=== PATIENT | female | born 1965 ===

== ENCOUNTER 2017-10-12 15:40 | Emergency (ER) | payer SELFPAY ==
[2017-10-12 16:52] LABS: Basophils # (Auto) 0.1 K/mm3 (0.0-0.1); Basophils % (Auto) 1.5 % (0.0-1.8); Eosinophils # (Auto) 0.3 K/mm3 (0.0-0.4); Eosinophils % (Auto) 3.8 % (0.0-4.3); Hematocrit 41.1 % (30.3-42.9); Hemoglobin 13.4 gm/dl (10.1-14.3); Lymphocytes # (Auto) 3.6 K/mm3 (1.2-5.4); Mean Corpuscular HGB Conc 33 % (30-34); Mean Corpuscular Hemoglobin 28 pg (28-32); Mean Corpuscular Volume 86 fl (79-97); Monocytes # (Auto) 0.5 K/mm3 (0.0-0.8); Monocytes % (Auto) 6.7 % (0.0-7.3); Platelet Count 188 K/mm3 (140-440); Red Blood Count 4.76 M/mm3 (3.65-5.03); Red Cell Distribution Width 14.5 % (13.2-15.2)
[2017-10-12 17:18] LABS: Alanine Aminotransferase 22 units/L (7-56); Albumin 4.4 g/dL (3.9-5); BUN/Creatinine Ratio 15; Blood Urea Nitrogen 9 mg/dL (7-17); Calcium 9.3 mg/dL (8.4-10.2); Hemolysis Index 39; Lipase 44 units/L (13-60)
[2017-10-12 18:25] LABS: Bacteria,Urine 1+ /HPF (Negative); Bilirubin,Urine NEG (Negative); Blood,Urine NEG (Negative); Color,Urine Yellow (Yellow); Mucus,Urine FEW /HPF; Protein,Urine <15 mg/dL mg/dL (Negative); Urobilinogen,Urine < 2.0 mg/dL (<2.0)
[2017-10-12 18:28] LABS: Amphetamine Screen,Urine PRESUMPTIVE NEGATIVE; Benzodiazepines Screen,Urine PRESUMPTIVE NEGATIVE; Cannabinoid Screen,Urine PRESUMPTIVE NEGATIVE; Cocaine Screen,Urine PRESUMPTIVE NEGATIVE; Methadone Screen,Urine PRESUMPTIVE NEGATIVE; Opiate Screen,Urine PRESUMPTIVE NEGATIVE
--- NOTE | 2017-10-13 03:29 | Emergency Department Report ---
HPI - General Chief Complaint: Abdominal Pain Time Seen by Provider: 10/13/17 02:59 - HPI HPI: Room 8 The patient is a 52-year-old female presenting with chief complaint elbow pain. The patient states she believes she is being poisoned by her roommates because they do not like her. The patient states she purchased some shrimp and chicken from the supermarket and prepared it herself yesterday. The patient states the food had a different taste in approximately 20 minutes after consuming that she began to have abdominal pain and felt dizzy. Patient describes her abdominal pain is severe and diffuse. Patient states she's had nausea and vomiting but denies diarrhea. Patient is uncertain if she had a fever. Patient denies sick contacts. Patient denies recent antibiotic use. Location: Abdomen Duration: [See above] Quality: Pain Severity: Moderate Modifying factors: [see above] Context: [see above] Mode of transportation: Patient states she took public transportation ED Past Medical Hx - Past Medical History Previous Medical History?: No - Surgical History Past Surgical History?: No - Family History Family history: no significant - Social History Smoking Status: Never Smoker Substance Use Type: None (denies illicit drug use) - Medications Home Medications: Home Medications Medication Instructions Recorded Confirmed Last Taken Type Ciprofloxacin HCl [Ciprofloxacin 500 mg PO Q12H #14 tab 10/13/17 Unknown Rx TAB] Famotidine [Pepcid] 20 mg PO BID #20 tablet 10/13/17 Unknown Rx Promethazine [Phenergan TAB] 25 mg PO Q6HR PRN #20 tab 10/13/17 Unknown Rx Promethazine [Phenergan] 25 mg MS Q6HR PRN #5 supp.rect 10/13/17 Unknown Rx traMADol [Ultram] 50 mg PO Q6HR PRN #14 tablet 10/13/17 Unknown Rx ED Review of Systems ROS: Stated complaint: ABDOMINAL PAIN Other details as noted in HPI Constitutional: denies: fever Gastrointestinal: abdominal pain, nausea, vomiting. denies: diarrhea Neurological: other (lightheadedness) Physical Exam - Physical Exam Vital Signs: Vital Signs 10/12/17 10/13/17 10/13/17 16:26 02:25 02:30 Temperature 98.9 F Pulse Rate 79 Respiratory 18 Rate Blood Pressure 154/100 144/82 122/55 O2 Sat by Pulse 100 98 Oximetry 10/13/17 10/13/17 02:32 02:46 Temperature Pulse Rate Respiratory 18 Rate Blood Pressure 122/55 O2 Sat by Pulse 100 100 Oximetry Physical Exam: GENERAL: The patient is well-developed well-nourished female lying on stretcher not appearing to be in acute distress. [] HEENT: Normocephalic. Atraumatic. Extraocular motions are intact. Patient has moist mucous membranes. NECK: Supple. Trachea midline CHEST/LUNGS: Clear to auscultation. There is no respiratory distress noted. HEART/CARDIOVASCULAR: Regular. There is no tachycardia. There is no gallop rub or murmur. ABDOMEN: Abdomen is soft, nontender. Patient has normal bowel sounds. There is no abdominal distention. SKIN: There is no rash. There is no edema. There is no diaphoresis. NEURO: The patient is awake, alert, and oriented. The patient is cooperative. The patient has normal speech MUSCULOSKELETAL: There is no evidence of acute injury. ED Course Vital Signs 10/12/17 10/13/17 10/13/17 16:26 02:25 02:30 Temperature 98.9 F Pulse Rate 79 Respiratory 18 Rate Blood Pressure 154/100 144/82 122/55 O2 Sat by Pulse 100 98 Oximetry 10/13/17 10/13/17 02:32 02:46 Temperature Pulse Rate Respiratory 18 Rate Blood Pressure 122/55 O2 Sat by Pulse 100 100 Oximetry ED Medical Decision Making - Lab Data Result diagrams: 10/12/17 16:41 10/12/17 16:41 Laboratory Tests 10/12/17 10/12/17 10/12/17 16:41 16:41 17:16 WBC 7.3 RBC 4.76 Hgb 13.4 Hct 41.1 MCV 86 MCH 28 MCHC 33 RDW 14.5 Plt Count 188 Lymph % (Auto) 49.0 H Clinch % (Auto) 6.7 Eos % (Auto) 3.8 Baso % (Auto) 1.5 Lymph # 3.6 Clinch # 0.5 Eos # 0.3 Baso # 0.1 Seg Neutrophils % 39.0 L Seg Neutrophils # 2.9 Sodium 140 Potassium 3.9 Chloride 99.3 Carbon Dioxide 29 Anion Gap 16 BUN 9 Creatinine 0.6 L Estimated GFR > 60 BUN/Creatinine Ratio 15 Glucose 84 Calcium 9.3 Total Bilirubin 0.60 AST 31 ALT 22 Alkaline Phosphatase 100 Total Protein 8.1 Albumin 4.4 Albumin/Globulin Ratio 1.2 Lipase 44 Urine Color Yellow Urine Turbidity Clear Urine pH 5.0 Ur Specific [place] 1.017 Urine Protein <15 mg/dl Urine Glucose (UA) Neg Urine Ketones Neg Urine Blood Neg Urine Nitrite Neg Urine Bilirubin Neg Urine Urobilinogen < 2.0 Ur Leukocyte Esterase Tr Urine WBC (Auto) 2.0 Urine RBC (Auto) 3.0 U Epithel Cells (Auto) 1.0 Urine Bacteria (Auto) 1+ Urine Mucus Few Urine Opiates Screen Urine Methadone Screen Ur Barbiturates Screen Ur Phencyclidine Scrn Ur Amphetamines Screen U Benzodiazepines Scrn Urine Cocaine Screen U Marijuana (THC) Screen Drugs of Abuse Note 10/12/17 17:16 WBC RBC Hgb Hct MCV MCH MCHC RDW Plt Count Lymph % (Auto) Clinch % (Auto) Eos % (Auto) Baso % (Auto) Lymph # Clinch # Eos # Baso # Seg Neutrophils % Seg Neutrophils # Sodium Potassium Chloride Carbon Dioxide Anion Gap BUN Creatinine Estimated GFR BUN/Creatinine Ratio Glucose Calcium Total Bilirubin AST ALT Alkaline Phosphatase Total Protein Albumin Albumin/Globulin Ratio Lipase Urine Color Urine Turbidity Urine pH Ur Specific [place] Urine Protein Urine Glucose (UA) Urine Ketones Urine Blood Urine Nitrite Urine Bilirubin Urine Urobilinogen Ur Leukocyte Esterase Urine WBC (Auto) Urine RBC (Auto) U Epithel Cells (Auto) Urine Bacteria (Auto) Urine Mucus Urine Opiates Screen Presumptive negative Urine Methadone Screen Presumptive negative Ur Barbiturates Screen Presumptive negative Ur Phencyclidine Scrn Presumptive negative Ur Amphetamines Screen Presumptive negative U Benzodiazepines Scrn Presumptive negative Urine Cocaine Screen Presumptive negative U Marijuana (THC) Screen Presumptive negative Drugs of Abuse Note Disclamer - EKG Data -: EKG Interpreted by Sd EKG shows normal: sinus rhythm Rate: normal - EKG Data When compared to previous EKG there are: previous EKG unavailable Interpretation: normal EKG - Radiology Data Radiology results: report reviewed (CT abdomen and pelvis), image reviewed (CT abdomen and pelvis) - Differential Diagnosis salmonella, food borne illness, gastroenteritis, partial obstruction Critical care attestation.: If time is entered above; I have spent that time in minutes in the direct care of this critically ill patient, excluding procedure time. ED Disposition Clinical Impression: Acute abdominal pain, Nausea & vomiting Disposition: DC-01 TO HOME OR SELFCARE Is pt being admited?: No Does the pt Need Aspirin: No Condition: Stable Instructions: Abdominal Pain (ED), Food Poisoning (ED), Salmonella Infection ( ED) Additional Instructions: Return to the emergency department immediately should you develop worsening symptoms, fever, inability to tolerate food or liquid or any other concerns. 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 Please follow up with him for further evaluation) Time of Disposition: 04:56
[2017-10-13] MEDS ORDERED: NACL ONE (04:13)
--- NOTE | 2017-10-13 04:51 | Cat Scan Report ---
FINAL REPORT PROCEDURE: CT ABDOMEN PELVIS W CON TECHNIQUE: Computerized axial tomography of the abdomen and pelvis was performed after the IV injection of iodinated nonionic contrast. HISTORY: diffuse abdominal pain nausea vomiting COMPARISON: No prior studies are available for comparison. FINDINGS: Visualized lower thorax: No significant abnormality. Liver: Normal size and attenuation. Spleen: Normal size and attenuation. Gallbladder and biliary system: Normal. Pancreas: Normal. Adrenals: Normal. Kidneys: Both kidneys have a normal size. No hydronephrosis. No renal stones or masses. GI tract: The stomach is normal. The small bowel has a normal caliber without obstruction. No ileus or enteritis. The cecum, appendix and colon are normal.. Lymph nodes and mesentery: Normal. Vasculature: Normal. Bladder: Normal. Reproductive organs: Normal. Peritoneum: No free fluid. Musculoskeletal structures: No significant abnormality. Other: None. IMPRESSION: There is no evidence of intestinal or urinary tract obstruction. No ileus or enteritis.
[2017-10-13 05:24] VITALS: BP 138/82
== END 2017-10-13 05:25 | disposition home or self-care (01) ==
LOC: ED 15:40
DX: R10.9 Unspecified abdominal pain (principal); R11.2 Nausea with vomiting, unspecified
CPT/HCPCS: 36415; 74177; 80053; 80307; 81001; 83690; 85025; 93005; 93010; 99284; Q9967